=== PATIENT | female | born 1950 | race Caucasian/White ===

== ENCOUNTER → 2018-06-10 | Outpatient (CLI) | payer OTHER ==
--- NOTE | 2018-06-17 17:33 | EEG ---
[address] [address] EEG STUDY REPORT Name: CHRISTIANA MERCADO Room: [facility]#: [id number] Admission: 06/10/18 Attend Phys: Yenifer Aden, Discharge: Date of : 52 Report #: [id number] THIS REPORT FOR: //name// CC: [facility] physician/PCP Yenifer Aden DATE OF SERVICE: 06/10/2018 This patient is being evaluated for the possibility of seizure. The patient has a history of syncope. This EEG was done by placing the electrode by standard 10-20 system of electrode placement. Both referential and sequential montages were used for recording. The background activity in this patient's EEG is about 11 Hz and 40-50 microvolts. The patient became drowsy that is associated with bilateral slowing and vertex sharp waves. Photic stimulation was unremarkable. Throughout the record, no active epileptiform activity was noticed. IMPRESSION: This patient's EEG is within normal limit. Thank you very much for this referral. <ELECTRONICALLY SIGNED> By: Kole Blackmon MD 06/17/18 1733 [id number] Blackmon MD /nt
== END ==
LOC: M.CRD 06-05 09:00
DX: R55 Syncope and collapse (principal)